=== PATIENT | female | born 1955 | race Asian ===

== ENCOUNTER 2019-05-11 07:56 | Emergency (ER) | payer OTHER ==
[2019-05-11 08:08] VITALS: BP 187/77
[2019-05-11] MEDS ORDERED: KETOROLAC 30 MG/1 ML INJ IM ONE (10:12)
[2019-05-11] MEDS ORDERED: ONDANSETRON 4 MG ODT TAB PO ONE (10:14)
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
== END 2019-05-11 11:45 | disposition home or self-care (01) ==
LOC: ED 07:56
DX: S16.1XXA Strain of muscle, fascia and tendon at neck level, initial encounter (principal); S39.012A Strain of muscle, fascia and tendon of lower back, initial encounter; I10 Essential (primary) hypertension; V49.49XA Driver injured in collision with other motor vehicles in traffic accident, initial encounter; Y93.89 Activity, other specified; Y92.488 Other paved roadways as the place of occurrence of the external cause; Y99.8 Other external cause status
CPT/HCPCS: 72040; 72100; 96372; 99283; J1885; Q0162